=== PATIENT | male | born 1935 | race Caucasian/White ===

== ENCOUNTER 2017-04-13 08:20 | Day surgery (SDC) | payer OTHER ==
[~2017-04-13] VITALS: Ht 175.3 cm; Wt 86.0 kg
[~2017-04-13 08:20] MED LIST: AMIODARONE HCL200 MG PO; ANTI-DIARRHEA2 MG PO; ASPIRIN325 MG PO; ASPIRIN81 M2 PO; ATORVASTATIN CA10 MG PO; BUMETANIDE2 MG PO; CALCIUM ACETAT667 MG PO; FLOMAX0.4 MG PO; FOLIC ACID1 MG PO; METOPROLOL TART25 MG PO; METOPROLOL TARTRATE PO; MIDODRINE HCL5 MG PO; MIRALAX17 GM PO; NEPHRO-VITE,1 TABLET PO; POTASSIUM CHLO20 ME1 PO; PRESERVISIO1 CAPSULE PO; PROAMATINE5 MG PO; RENAL CAPS SOFTG1 MG PO; VITAMIN D35000 UNIT PO
[2017-04-13] MEDS ORDERED: NEPHROCAPS SOFTG1 MG PO (08:49)
== END 2017-04-13 10:24 | disposition home or self-care (01) ==
LOC: CATH 08:20
DX: T82.858A Stenosis of other vascular prosthetic devices, implants and grafts, initial encounter (principal); N18.6 End stage renal disease; Z99.2 Dependence on renal dialysis; I50.9 Heart failure, unspecified; G47.33 Obstructive sleep apnea (adult) (pediatric); Z95.1 Presence of aortocoronary bypass graft; Z87.891 Personal history of nicotine dependence
CPT/HCPCS: 87641; C1725; C1769; C1874; C1894; J1644; J2250; J3010